=== PATIENT | male | born 1980 | race Two or more races ===

== ENCOUNTER 2023-07-14 16:46 | Emergency (ER) | payer MEDICAID, OTHER ==
[~2023-07-14] VITALS: Ht 182.9 cm; Wt 127.7 kg
[2023-07-14] MEDS ORDERED: SODIUM CHLORIDE 0.9% 1,000 ML IV ONE (17:00)
[2023-07-14 18:10] LABS: Basophils # (auto) 0 10 ^3/uL (0-0.2); Basophils % (auto) 0.4 % (0.0-2.0); Eosinophils # (auto) 0.1 10 ^3/uL (0-0.8); Eosinophils % (auto) 1.1 % (0.0-7.0); Hemoglobin 16.7 g/dL (13.5-17.5); Lymphocytes # (auto) 1.5 10 ^3/uL (0.4-5.4); Lymphocytes % (auto) 20.8 % (10.0-50.0); Mean Corpuscular Hemoglobin 32.1 pg (28.0-32.0); Mean Corpuscular Hgb Conc. 34.1 g/dL (32.0-36.0); Mean Corpuscular Volume 94.1 fL (80.0-100.0); Monocytes # (auto) 0.6 10 ^3/uL (0-1.3); Monocytes % (auto) 8.8 % (0.0-12.0); Neutrophils # (auto) 5.1 10 ^3/uL (1.6-8.6); Neutrophils % (auto) 68.9 % (37.0-80.0); Nucleated Red Blood Cells % 0.1 %; Red Blood Cells 5.21 10^6/uL (4.5-5.90); White Blood Cell 7.4 10^3/uL (4.4-10.8)
[2023-07-14 18:34] LABS: Alanine Aminotransferase 468 U/L (7-40); Albumin 4.4 g/dL (3.2-4.8); Alkaline Phosphatase 86 U/L (46-116); Anion Gap 10 (5-15); Aspartate Aminotransferase 381 U/L (13-40); BUN/Creatinine Ratio 15.3 (10.0-20.0); Blood Alcohol 284.4 mg/dL (<10); Blood Urea Nitrogen 9 mg/dL (9-23); Calcium 8.9 mg/dL (8.7-10.4); Carbon Dioxide 23 mmol/L (20-30); Chloride 103 mmol/L (98-107); Glucose 114 mg/dL (74-106); Potassium 4.1 mmol/L (3.5-5.1); Sodium 136 mmol/L (136-145)
[2023-07-14 18:35] LABS: Bilirubin, Total 2.3 mg/dL (0.2-1.0); Total Protein 6.7 g/dL (5.7-8.2)
[2023-07-14 20:01] VITALS: BP 125/44; TEMP 97.4
[2023-07-14 20:17] VITALS: PULSE 74; RESP 14; O2SAT 97
[2023-07-14 20:20] LABS: Amphetamine Screen, Urine Neg (NEGATIVE); Barbiturate Scree,Urine Neg (NEGATIVE); Benzodiazephine Screen, Urine Neg (NEGATIVE); Cannabinoid Screen, Urine Neg (NEGATIVE); Cocaine Screen, Urine Neg (NEGATIVE); Opiate Scree,Urine Neg (NEGATIVE); Phencyclidine Screen, Urine Neg (NEGATIVE)
== END 2023-07-14 20:27 | disposition home or self-care (01) ==
LOC: EDBD 16:46 → ER 16:46
DX: S00.81XA Abrasion of other part of head, initial encounter (principal); S09.8XXA Other specified injuries of head, initial encounter; F10.129 Alcohol abuse with intoxication, unspecified; R94.31 Abnormal electrocardiogram [ECG] [EKG]; Z79.899 Other long term (current) drug therapy; V43.52XA Car driver injured in collision with other type car in traffic accident, initial encounter; Y99.8 Other external cause status; Y93.89 Activity, other specified; Y92.89 Other specified places as the place of occurrence of the external cause; Y90.8 Blood alcohol level of 240 mg/100 ml or more
CPT/HCPCS: 36415; 70450; 72125; 80053; 80307; 80320; 85025; 93005; 96360; 99284; J7030

== ENCOUNTER 2023-12-14 07:01 | Emergency (ER) | payer MEDICAID ==
[~2023-12-14] VITALS: Ht 185.4 cm; Wt 114.0 kg
[2023-12-14 08:01] VITALS: BP 128/79; PULSE 71; RESP 16; TEMP 97.1; O2SAT 96
[2023-12-14] MEDS: DexAMETHasone SOD PHOS 10MG/1ML VIAL INJ IM ONE (08:17)
[2023-12-14] MEDS: KETOROLAC TROMETH 30 MG/ML 1ML VIAL IM ONE (08:17)
[2023-12-14] MEDS ORDERED: NAPR-746 PO (08:22)
== END 2023-12-14 08:22 | disposition home or self-care (01) ==
LOC: ER 07:01
DX: S62.396A Other fracture of fifth metacarpal bone, right hand, initial encounter for closed fracture (principal); Z79.899 Other long term (current) drug therapy; X58.XXXA Exposure to other specified factors, initial encounter; Y93.89 Activity, other specified; Y92.89 Other specified places as the place of occurrence of the external cause; Y99.8 Other external cause status
CPT/HCPCS: 73130; 96372; 99284; J1100; J1885

== ENCOUNTER 2024-04-20 11:31 | Emergency (ER) | payer MEDICAID ==
[~2024-04-20] VITALS: Ht 193 cm; Wt 114.2 kg
[~2024-04-20 11:31] MED LIST: ATOR20TA50 PO; CLON0.1T PO; CLON0.5T4 PO; FLUO-470 PO; NAPR-746 PO; OLAN1TAB7 PO; OXCA600T3 PO; OXCA600T40 PO; PRAZ1CAP2 PO; TRAZ300T13 PO
[2024-04-20 13:19] VITALS: TEMP 97.7; O2SAT 96
[2024-04-20] MEDS: MORPHINE SULFATE 4 MG/ML SYR/VIAL IM ONE (14:12)
[2024-04-20] MEDS: ONDANSETRON HCL 4 MG/2 ML VIAL IM ONE (14:13)
[2024-04-20] MEDS ORDERED: IBUP-1455 PO (14:29)
[2024-04-20] MEDS ORDERED: HYDR-4798 PO (14:29)
[2024-04-20 14:37] VITALS: BP 128/82; PULSE 64; RESP 18
== END 2024-04-20 14:39 | disposition home or self-care (01) ==
LOC: ER 11:31 → MERGE 11:31 → ER 14:39
DX: S62.665A Nondisplaced fracture of distal phalanx of left ring finger, initial encounter for closed fracture (principal); Z79.899 Other long term (current) drug therapy; W22.8XXA Striking against or struck by other objects, initial encounter; Y93.89 Activity, other specified; Y92.89 Other specified places as the place of occurrence of the external cause; Y99.8 Other external cause status
CPT/HCPCS: 12001; 29130; 73140; 96372; 99284; J2270; J2405